=== PATIENT | male | born 1940 | race Caucasian/White ===

== ENCOUNTER → 2017-01-18 | Outpatient (CLI) | payer OTHER | LOC: FIMAGING 14:15 | PROVIDERS: ATTEND Physician Assistant Surgical | DX: M43.17 Spondylolisthesis, lumbosacral region (principal); M48.07 Spinal stenosis, lumbosacral region; M51.26 Other intervertebral disc displacement, lumbar region; M48.06 Spinal stenosis, lumbar region; I70.0 Atherosclerosis of aorta | CPT/HCPCS: A9585 ==

== ENCOUNTER → 2017-01-18 | Outpatient (CLI) | payer OTHER ==
[~2017-01-18] MED LIST: GADOBUTROL 10 ML VIAL IVP ONE
[2017-01-18 10:45] LABS: CREATININE 0.9 mg/dL (0.7-1.3); GLOMERULAR FILTRATION RATE > 60
== END ==
LOC: FIMAGING 09:57
PROVIDERS: ATTEND Physician Assistant Surgical
DX: M43.16 Spondylolisthesis, lumbar region (principal); Z98.1 Arthrodesis status
CPT/HCPCS: 72110; 72158; A9585

== ENCOUNTER 2017-01-31 05:43 | Inpatient (IN) | payer OTHER ==
[2017-01-31] MEDS ORDERED: CHLORHEXIDINE GLUC HIBICLENS 118 ML BTL TP ONE (06:00)
[2017-01-31] MEDS ORDERED: morphINE PF 5 MG/10 ML INJ IT ONE (06:00)
[2017-01-31] MEDS ORDERED: fentaNYL 100 MCG/2 ML INJ IT ONE (06:00)
[2017-01-31] MEDS ORDERED: CEFUROXIME 1,500 MG in NS 50 ML IV ONE (06:00)
[2017-01-31] MEDS ORDERED: LIDOCAINE 1% 5 ML SDV ID PRN (06:27)
[2017-01-31] MEDS ORDERED: LR 1,000 ML IV ONE (06:27)
[2017-01-31] MEDS ORDERED: BACITRACIN 50,000 UNITS/10 ML SYR IRR ONE (06:33)
[2017-01-31] MEDS ORDERED: BUPIVACAINE/EPI 0.25% 30 ML SDV ONE ×2 (06:33→07:12)
[2017-01-31] MEDS ORDERED: THROMBIN (RECOMBINANT) 5,000 UNIT VIAL TP ONE (06:33)
[2017-01-31] MEDS ORDERED: BUPIVACAINE 0.25% 30 ML SDV ONE (06:33)
[2017-01-31 06:45] LABS: % IMMATURE GRANULYOCYTES 0.5 % (0.0-1.1); ABSOLUTE IMMATURE GRANULOCYTES 0.03 10^3/uL (0.00-0.10); ADD DIFF? NO; ADD MORPH? NO; ADD SCAN? NO; ATYPICAL LYMPHOCYTE FLAG 0 (0-99); FRAGMENT RBC FLAG 0 (0-99); HEMATOCRIT 42.4 % (40.0-51.0); HEMOGLOBIN 14.3 g/dL (13.7-17.5); LEFT SHIFT FLG 0 (0-99); LIPEMIA HEMOLYSIS FLAG 80 (0-99); MEAN CELL HEMOGLOBIN 30.2 pg (27.9-34.1); MEAN CELL HEMOGLOBIN CONCENTR. 33.7 g/dL (32.4-36.7); MEAN CELL VOLUME 89.6 fL (81.5-99.8); MEAN PLATELET VOLUME 9.6 fL (8.7-11.7); PLATELET CLUMPS FLAG 0 (0-99); PLATELET COUNT 279 10^3/uL (150-400); RED BLOOD CELL COUNT 4.73 10^6/uL (4.40-6.38); RED CELL DISTRIBUTION WIDTH 12.8 % (11.5-15.2)
[2017-01-31] MEDS ORDERED: MIDAZOLAM 2 MG/2 ML VIAL ONE (07:11)
[2017-01-31] MEDS ORDERED: PROPOFOL 200 MG/20 ML VIAL ONE (07:18)
[2017-01-31] MEDS ORDERED: SUCCINYLCHOLINE CHLORIDE*ANESTHESIA ONLY*200 MG/10 ML SYR IVP ONE (07:18)
[2017-01-31] MEDS ORDERED: fentaNYL 100 MCG/2 ML INJ ONE ×3 (07:18→11:58)
[2017-01-31] MEDS ORDERED: PROPOFOL/EMULSION 500 MG/50 ML BOTTLE IV ONE ×2 (07:18→09:58)
[2017-01-31] MEDS ORDERED: DEXAMETHASONE 4 MG/ML VIAL ONE (07:18)
[2017-01-31] MEDS ORDERED: REMIFENTANIL HCL 1 MG VIAL ONE ×2 (07:18→09:57)
[2017-01-31] MEDS ORDERED: LIDOCAINE 2% 5 ML SDV ONE (07:19)
[2017-01-31] MEDS ORDERED: KETAMINE 100 MG/10 ML SYR IVP ONE (07:30)
[2017-01-31] MEDS ORDERED: morphINE PF 5 MG/10 ML INJ ONE (07:59)
[2017-01-31] MEDS ORDERED: ONDANSETRON 4 MG/2 ML VIAL IVP PRN (11:55)
[2017-01-31] MEDS ORDERED: ONDANSETRON DISINTEGRATING 4 MG TAB PO PRN (11:55)
[2017-01-31] MEDS ORDERED: HYDROCODONE/APAP 10/325 TAB PO PRN (11:55)
[2017-01-31] MEDS ORDERED: DIAZEPAM 5 MG TAB PO PRN (11:55)
[2017-01-31] MEDS ORDERED: diphenhydrAMINE 25 MG CAP PO PRN (11:55)
[2017-01-31] MEDS ORDERED: LACTULOSE 20 GM/30 ML UDCUP PO PRN (11:55)
[2017-01-31] MEDS ORDERED: METHOCARBAMOL 750 MG TAB PO PRN (11:55)
[2017-01-31] MEDS ORDERED: DIAZEPAM 10 MG/2 ML SYR IVP PRN (11:55)
[2017-01-31] MEDS ORDERED: MAGNESIUM HYDROXIDE 30 ML UDCUP PO PRN (11:55)
[2017-01-31] MEDS ORDERED: OXYCODONE/APAP 5/325 TAB PO PRN (11:55)
[2017-01-31] MEDS ORDERED: BISACODYL 10 MG SUPP PR PRN (11:55)
[2017-01-31] MEDS ORDERED: MAG HYDROX/AL HYDROX/SIMETH 30 ML UDCUP PO PRN (11:55)
[2017-01-31] MEDS ORDERED: NS W/ 20 KCl/L 1,000 ML IV SCH (12:00)
--- NOTE | 2017-01-31 12:04 | POSTOPPROG ---
Post Op Note Date of Operation: 01/31/17 Surgeon: Alexis Garcia Guide: joseph Anesthesiologist: jennifer Leggett Anesthesia: GET(General Endotracheal) Pre-op Diagnosis: pseudarthrosis, L5/S1. Post-op Diagnosis: same Indication: back and leg pain Procedure: hardware removal Left side L5/S1, Redo TLIF and replacement of screws bilat Findings: loose hardware,right NF stenosis Inf/Abcess present in the surg proc area at time of surgery?: No EBL: 50-100 Complications: none Drains: Julio Pandey (to suction)
--- NOTE | 2017-01-31 14:58 | SOAPPROG ---
SOAP Progress Note Assessment/Plan: Assessment: POST OP CHECK: doing well s/p L5/s1 redo TLIF Plan: transfer to floor per protocol RUY to bulb suction 01/31/17 14:56 Subjective: sitting up in bed, denies back pain tying to urinate Objective: Vital Signs Temp Pulse Resp BP Pulse Ox 36.7 C 65 18 115/68 99 01/31/17 14:37 01/31/17 14:37 01/31/17 14:37 01/31/17 14:37 01/31/17 14:37 Laboratory Results 01/31/17 06:36 01/30/17 01/31/17 02/01/17 05:59 05:59 05:59 Intake Total 1700 Output Total 585 Balance 1115 Vitals: BP: 117/68 HR: 90 O2: 98% Neuro: ABRAHAM, sens +LT follows commands speech clear ICD10 Worksheet Patient Problems: Problems Problem Status Onset Lumbar stenosis Acute
--- NOTE | 2017-01-31 16:58 | GOP ---
[f rep st] OPERATIVE REPORT DATE OF OPERATION: 01/31/2017 SURGEON: Alexis Garcia MD ROUTE DELIVERY SERVICE DRIVER: Jonathan Arboleda, BERNICE. ANESTHESIA: General endotracheal. 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 PROCEDURE PERFORMED: 1. Exploration of spinal fusion at L5-S1 with removal of posterior nonsegmental (pedicle screw and axle device) fixation and re-instrumentation at L5-S1 with pedicle screws and axle device. 2. Removal of interbody PEEK grafts and re-do L5-S1 posterior/transforaminal lumbar interbody fusio n with 2 structural PEEK interbody spacers, local autograft, and bone morphogenic protein. 3. L5-S1 posterolateral fusion with local autograft, morselized allograft, and bone morphogenic pro tein. 4. Use of intraoperative microscopy, fluoroscopy, and computer volumetric stereotactic navigation w ith intraoperative neurophysiologic testing. 5. Injection of intrathecal narcotic analgesics and subcutaneous and intramuscular local anesthesia for postoperative pain control. FINDINGS: ESTIMATED BLOOD LOSS: 300 cc. INDICATIONS: The patient is a 76-year-old man who underwent an L5-S1 instrumented decompression and stabilization with pedicle screws and interbody spacers approximately 5 months ago. He had done we ll for the first 2 months but then, while crawling on the floor and twisting, had recurrence of his low back pain as well as right-sided pain even though his preoperative pain was on the left. After extensive conservative care, re-do imaging demonstrated question of loosening of the hardware and a nonunion, and he presents now for revision after failing extensive conservative care. DESCRIPTION OF PROCEDURE: After informed consent was obtained, the patient was taken to the operati ng room and placed in the prone position on the Julio table. The lumbosacral area was prepped and draped in a sterile fashion. After fluoroscopic localization of the correct levels, the subcutaneo us and intramuscular tissues were infiltrated with local anesthesia. A midline linear incision was then created over the L5-S1 spinous processes. This was carried down to the fascial layer, which wa s then incised using monopolar electrocautery and carried in a subperiosteal plane along the spinous processes and lamina bilaterally. The prior instrumentation was identified and carefully removed o n the left. The L5 screw was loose, but the S1 screw had good purchase. Extensive curettage was th en performed in order to get down to bone bilaterally at L5 and S1. The axle device was also remove d. An extensive decompression was then performed on the right with complete unroofing of the L5-S1 facet joint and neural foramina at both L5 and S1. There was severe narrowing around both L5 and S1 , and extensive decompression was performed under high-power microscopy. Following adequate decompr ession, the O-arm neuronavigational system was brought in, and pedicle screws were placed at L5 and S1 bilaterally. The left L5 screw was technically very challenging given the prior hole. A more la teral rostral insertion site was necessary with a more caudal medial trajectory. The old hole at S1 was utilized with a larger screw. Good purchase was obtained at L5 and S1 on the right. The rods were then placed. These were secured under slight amount of distraction during which time a right-s ided diskectomy was performed with drilling out of the PEEK interbody spacers under high-power micro scopy and removal of those piecemeal. A complete re-do diskectomy was then performed with removal o f all prior graft material and anything else in the disk space. The endplates were scraped clean, a nd the interspace was repacked with two 12 mm structural PEEK interbody spacers, local autograft, an d bone morphogenic protein for an L5-S1 posterior/transforaminal lumbar interbody fusion. The screw and sree system was then placed in a slight amount of compression in order to facilitate bony union and to minimize the potential for posterior graft migration. An axial device was then placed for ad ded fixation in an effort to prevent a recurrent nonunion. The remaining transverse prostheses and any facet joint were then extensively decorticated bilaterally, and the residual local autograft kristina ng with bone morphogenic protein and morselized allograft was placed out laterally for posterolatera l fusion at the L5-S1 level. Following re-verification of good position of the screws, rods, inner spinous process clamp, and interbody spacers using biplanar fluoroscopy, a drain was placed. The jones bcutaneous and intramuscular tissues were re-infiltrated with local anesthesia. 200 mcg of [employer] h along with 50 mcg of fentanyl were injected intrathecally, and the wound was closed in a layered f ashion using interrupted Vicryl sutures followed by Steri-Strips on the skin. COMPLICATIONS: None. DISPOSITION: The patient was extubated and transported to the recovery room in stable condition. /[id number]/MODL
[2017-01-31] MEDS: POLYETHYLENE GLYCOL 3350 17 GM PKT PO SCH ×2 (17:29→21:01)
[2017-01-31] MEDS: morphINE SR 15 MG TAB PO SCH (21:00)
[2017-01-31] MEDS ORDERED: FAMOTIDINE 20 MG/NACL 50 ML IV SCH (21:00)
[2017-01-31] MEDS: SENNOSIDES/DOCUSATE SODIUM TAB PO SCH (21:01)
[2017-02-01] MEDS: ACETAMINOPHEN 325 MG TAB PO PRN ×2 (04:31→10:05)
[2017-02-01 04:58] LABS: % IMMATURE GRANULYOCYTES 0.4 % (0.0-1.1); ABSOLUTE IMMATURE GRANULOCYTES 0.04 10^3/uL (0.00-0.10); ADD DIFF? NO; ADD MORPH? NO; ADD SCAN? NO; ATYPICAL LYMPHOCYTE FLAG 0 (0-99); FRAGMENT RBC FLAG 0 (0-99); HEMOGLOBIN 10.6 g/dL (13.7-17.5); LEFT SHIFT FLG 0 (0-99); LIPEMIA HEMOLYSIS FLAG 80 (0-99); MEAN CELL HEMOGLOBIN 29.7 pg (27.9-34.1); MEAN CELL HEMOGLOBIN CONCENTR. 33.1 g/dL (32.4-36.7); MEAN CELL VOLUME 89.6 fL (81.5-99.8); MEAN PLATELET VOLUME 9.3 fL (8.7-11.7); PLATELET CLUMPS FLAG 10 (0-99); PLATELET COUNT 242 10^3/uL (150-400); RED BLOOD CELL COUNT 3.57 10^6/uL (4.40-6.38); RED CELL DISTRIBUTION WIDTH 12.6 % (11.5-15.2)
[2017-02-01 05:30] LABS: ANION GAP 8 mEq/L (8-16); CALCIUM 8.7 mg/dL (8.5-10.4); CARBON DIOXIDE 24 mEq/l (22-31); CHLORIDE 104 mEq/L (97-110); CREATININE 0.8 mg/dL (0.7-1.3); GLOMERULAR FILTRATION RATE > 60; GLUCOSE 110 mg/dL (70-100); POTASSIUM 4.1 mEq/L (3.5-5.2); SODIUM 136 mEq/L (134-144)
[2017-02-01] MEDS ORDERED: LEVOTHYROXINE 25 MCG TAB PO SCH (06:00)
--- NOTE | 2017-02-01 07:23 | SOAPPROG ---
SOAP Progress Note Assessment/Plan: Assessment: doing well s/p L5/s1 redo TLIF. POD #1 pain well controlled. Plan: PT/OT LSO when out of bed Continue RUY To suction AP/lat lumbar xrays today Patient was seen by Dr. Garcia this AM 02/01/17 07:22 Subjective: awake, alert, pain well controlled Objective: Vital Signs Temp Pulse Resp BP Pulse Ox 37.1 C 75 18 124/74 H 96 02/01/17 04:00 02/01/17 04:00 02/01/17 04:00 02/01/17 04:00 02/01/17 04:00 Laboratory Results 02/01/17 04:45 02/01/17 04:45 01/31/17 02/01/17 02/02/17 05:59 05:59 05:59 Intake Total 2500 Output Total 1695 Balance 805 NEURO: ABRAHAM, Sens +LT RUY: 570 ml since surgery ICD10 Worksheet Patient Problems: Problems Problem Status Onset Lumbar stenosis Acute
[2017-02-01] MEDS: SENNOSIDES/DOCUSATE SODIUM TAB PO SCH (08:08)
[2017-02-01] MEDS: POLYETHYLENE GLYCOL 3350 17 GM PKT PO SCH (08:10)
[2017-02-01] MEDS ORDERED: ATORVASTATIN CALCIUM 10 MG TAB PO SCH (09:00)
[2017-02-01] MEDS ORDERED: ENOXAPARIN 40 MG/0.4 ML SYR SC SCH (09:00)
[2017-02-01] MEDS ORDERED: FAMOTIDINE 20 MG TAB PO SCH (09:00)
[2017-02-01] MEDS ORDERED: CHOLECALCIFEROL VIT D3 1,000 UNITS TAB PO SCH (09:00)
[2017-02-01] MEDS: morphINE SR 15 MG TAB PO SCH (09:15)
[2017-02-01 15:45] VITALS: BP 130/72; PULSE 67; RESP 16; TEMP 98; O2SAT 96
== END 2017-02-01 16:49 | disposition home or self-care (01) | DRG 460 ==
LOC: F3N 05:43
PROVIDERS: ADMIT Neurological Surgery; ATTEND Neurological Surgery
PROC: 3E0U0GB Introduction of Recombinant Bone Morphogenetic Protein into Joints, Open Approach (ICD-10-PCS; principal; 2017-01-31 07:15)
PROC: 0SG30AJ Fusion of Lumbosacral Joint with Interbody Fusion Device, Posterior Approach, Anterior Column, Open Approach (ICD-10-PCS; principal; 2017-01-31 07:15)
PROC: 0QP004Z Removal of Internal Fixation Device from Lumbar Vertebra, Open Approach (ICD-10-PCS; principal; 2017-01-31 07:15)
DX: M96.0 Pseudarthrosis after fusion or arthrodesis (principal); T84.296A Other mechanical complication of internal fixation device of vertebrae, initial encounter; Z98.1 Arthrodesis status
CPT/HCPCS: 97161-GP; 97165-GO; 97535-GO; C1713; C1762; G8978-GP-CI; G8979-GP-CI; G8980-GP-CI; G8987-GO-CI; G8988-GO-CI; G8989-GO-CI; J0330; J0690; J0697; J1100; J1650; J2250; J2274; J2704; J3010

== ENCOUNTER → 2017-05-10 | Outpatient (CLI) | payer OTHER | LOC: FIMAGING 10:41 | PROVIDERS: ATTEND Physician Assistant Surgical | DX: Z98.890 Other specified postprocedural states (principal); Z98.1 Arthrodesis status ==

== ENCOUNTER → 2017-08-04 | Outpatient (CLI) | payer OTHER | LOC: FIMAGING 11:55 | PROVIDERS: ATTEND Physician Assistant Surgical | DX: M43.26 Fusion of spine, lumbar region (principal) ==